=== PATIENT | female | born 2000 | race Caucasian/White ===

== ENCOUNTER → 2025-03-19 | Outpatient (CLI) | payer OTHER, SELFPAY ==
--- NOTE | 2025-03-19 14:11 | MRI_ITS ---
PROCEDURE: BREAST BILATERAL W/O AND W 03/19/2025 REASON FOR EXAM: GENETIC SUSEPTIBILITY, BRACA2 MUTATION CARRIER 24-year-old female presents for high-risk screening MRI due to BRCA 2 mutation carrier. TECHNIQUE: BREAST BILATERAL W/O AND W CONTRAST: 15 mL of IV Clariscan COMPARISON: No priors. FINDINGS: TISSUE DENSITY: The breasts are heterogeneously dense, which may obscure small masses. Background Parenchymal Enhancement: Mild RIGHT Breast: There is a focal area of non-mass enhancement in the upper-outer right breast at anterior depth measuring up to 2.4 cm (series [id number], image 127). This area appears to persistently enhance on the dynamic images. LEFT Breast: There are scattered areas of non-mass enhancement in the upper inner left breast, the largest areas in the upper inner left breast at middle depth measuring up to 6.3 cm (series [id number], image 127). There are 2 smaller areas of non-mass enhancement in the upper inner left breast at anterior depth measuring up to 0.7 cm (series [id number] image 137), in the other 1 more inferiorly at middle depth measuring up to 1.9 cm (series [id number] image 169). All these areas appear to have similar persistent enhancement characteristics. Other Findings: No suspicious axillary or internal mammary lymph nodes. Visualized portions of the thoracic and abdominal viscera are unremarkable. MRI/Breast Bilateral W/O and W IMPRESSION: Bilateral areas of non-mass enhancement are probably benign and may represent a part of background parenchymal enhancement. Recommend short interval six-month follow-up MRI for further evaluation. OVERALL FINAL ASSESSMENT BI-RADS 3: PROBABLY BENIGN. RECOMMENDATION: 6 Month Follow-up Reading Location: [id number]
== END | disposition home or self-care (01) ==
LOC: MRI 14:08
PROVIDERS: Referring Provider Nurse Practitioner Women's Health; Visit Provider Nurse Practitioner Women's Health
DX: Z15.01 Genetic susceptibility to malignant neoplasm of breast (principal)
CPT/HCPCS: 77049; A9575; A4216; C8908